=== PATIENT | female | born 1995 | race Caucasian/White ===

== ENCOUNTER 2017-10-21 11:58 | Emergency (ER) | payer BC, MEDICAID ==
[2017-10-21 13:43] VITALS: BP 106/73
--- NOTE | 2017-10-21 14:23 | UC ---
FLU HPI - HPI Summary HPI Summary: ONSET YESTERDAY OF COUGH, CONGESTION, ST, FEVER, BEAVERS. NO N/V/D. POS FLU EXPOSURE. NO FLU SHOT THIS SEASON. HERE WITH DAUGHTER AND SON WITH SIMILAR SX. - History of Current Complaint Chief Complaint: UCRespiratory Stated Complaint: FLU SYMPTOMS Time Seen by Provider: 10/21/17 13:37 Hx Obtained From: Patient Hx Last Menstrual Period: 09/28/2017 Onset/Duration: Gradual Onset, Lasting Days - 1 DAY, Still Present Severity Currently: Moderate Severity Initially: Moderate Pain Intensity: 2 Pain Scale Used: 0-10 Numeric Associated Signs & Symptoms: Positive: Fever, Myalgia, Cough, Sore Throat, Nasal Congestion, Headache - Allergy/Home Medications Allergies/Adverse Reactions: Allergies Allergy/AdvReac Type Severity Reaction Status Date / Time Sulfa (Sulfonamide Allergy Difficulty Verified 10/21/17 13:37 Antibiotics) Breathing Home Medications: Home Medications Levothyroxine Sodium 25 mcg PO DAILY 10/21/17 [History Confirmed 10/21/17] PMH/Surg Hx/FS Hx/Imm Hx Previously Healthy: Yes - Surgical History Surgical History: Yes Surgery Procedure, Year, and Place: T&A at 4 y/o - Social History Alcohol Use: None Substance Use Type: None Smoking Status (MU): Never Smoked Tobacco Review of Systems Constitutional: Fever, Chills, Fatigue ENT: Sore Throat, Nasal Discharge Respiratory: Cough Cardiovascular: Negative Gastrointestinal: Negative Musculoskeletal: Myalgia Neurological: Headache All Other Systems Reviewed And Are Negative: Yes Physical Exam Triage Information Reviewed: Yes Appearance: Well-Appearing, No Pain Distress, Well-Nourished Vital Signs: Initial Vital Signs Temp 101.1 F 10/21/17 13:38 Pulse 127 10/21/17 13:38 Resp 18 10/21/17 13:38 BP 106/73 10/21/17 13:38 Pulse Ox 96 10/21/17 13:38 Vital Signs Reviewed: Yes Eyes: Positive: Conjunctiva Clear ENT: Positive: Hearing grossly normal, Pharynx normal, TMs normal Neck: Positive: Supple, Nontender, Enlarged Nodes @ - SHOTTY SPFL CERVICAL LAD Respiratory Exam: Normal Cardiovascular: Positive: Tachycardia Abdomen Description: Positive: Soft Musculoskeletal: Positive: No Edema Neurological: Positive: Alert Psychological: Positive: Age Appropriate Behavior Skin: Negative: rashes Flu Course/Dx - Course Course Of Treatment: DAUGHTER SWABBED POSITIVE FOR INFLUENZA A. WILL TX FOR PRESUMPTIVE FLU WITH TAMIFLU. - Differential Dx/Diagnosis Provider Diagnoses: PRESUMPTIVE INFLUENZA Discharge - Discharge Plan Condition: Stable Disposition: HOME Prescriptions: Oseltamivir CAP* [Tamiflu CAP*] 75 mg PO BID #10 cap Patient Education Materials: Influenza (ED) Referrals: No Primary Care Phys,NOPCP [Primary Care Provider] - Additional Instructions: PRESUMPTIVE INFLUENZA. TAMIFLU TWICE DAILY FOR 5 DAYS. OTC MEDS NEEDED FOR FEVER, BODY ACHES. STAY WELL HYDRATED AND RESTED. SEEK FOLLOW-UP WITH YOUR PCP IN [place] IF YOU ARE NOT IMPROVING EXPECTED.
== END 2017-10-21 14:55 | disposition home or self-care (01) ==
LOC: UCEAST 11:58
DX: R05 Cough (principal); R09.89 Other specified symptoms and signs involving the circulatory and respiratory systems; J02.9 Acute pharyngitis, unspecified; R50.9 Fever, unspecified; R51 Headache; Z20.828 Contact with and (suspected) exposure to other viral communicable diseases; Z88.2 Allergy status to sulfonamides
CPT/HCPCS: 99212; G0463